=== PATIENT | female | born 1990 | race American Indian/Alaskan Native ===

== ENCOUNTER 2016-12-10 11:27 | Inpatient (IN) | payer MEDICAID ==
[2016-12-10] MEDS ORDERED: SUBLIMAZE IV PRN (11:36)
[2016-12-10] MEDS ORDERED: ePHEDrine SULFATE IV PRN ×2 (11:36→14:53)
[2016-12-10] MEDS ORDERED: MINERAL OIL PO PRN (11:36)
[2016-12-10] MEDS ORDERED: BRETHINE SUB-Q PRN (11:36)
[2016-12-10] MEDS ORDERED: XYLOCAINE 2% INFILTRATI ONE ×2 (11:36→20:14)
[2016-12-10] MEDS ORDERED: PITOCin/NS 20 UNIT/1000ML DRIP 20 UNITS/1,000 ML BAG IV SCH (12:00)
[2016-12-10 12:50] LABS: Hematocrit 38.6 % (30.3-42.9); Hemoglobin 12.3 gm/dl (10.1-14.3); Mean Corpuscular HGB Conc 32 % (30-34); Mean Corpuscular Hemoglobin 28 pg (28-32); Mean Corpuscular Volume 87 fl (79-97); Platelet Count 174 K/mm3 (140-440); Red Blood Count 4.45 M/mm3 (3.65-5.03); Red Cell Distribution Width 15.3 % (13.2-15.2); White Blood Count 8.1 K/mm3 (4.5-11.0)
[2016-12-10] MEDS ORDERED: fentaNYL-BUPIV 2 MCG/ML-0.125% 200 MCG/100 ML BAG EPIDURAL ONE (13:43)
--- NOTE | 2016-12-10 14:52 | Anesthesia Consultation ---
Anesthesia Consult and Med Hx - Airway Anesthetic Teeth Evaluation: Good ROM Head & Neck: Adequate Mental/Hyoid Distance: Adequate Mallampati Class: Class II Intubation Access Assessment: Good - Pulmonary Exam CTA: Yes - Cardiac Exam Cardiac Exam: RRR - Pre-Operative Health Status ASA Pre-Surgery Classification: ASA2 Proposed Anesthetic Plan: Epidural (Patine in labor - epidural placement - plt 174) - Pulmonary Hx Smoking: No (Patient cannot hear; slow learner) Hx Asthma: No COPD: No - Cardiovascular System Hx Hypertension: No - Central Nervous System Hx Seizures: No Hx Psychiatric Problems: No - Endocrine Hx Renal Disease: No Hx End Stage Renal Disease: No Hx Hypothyroidism: No Hx Hyperthyroidism: No - Hematic Hx Sickle Cell Disease: No - Other Systems Hx Alcohol Use: No
[2016-12-10] MEDS ORDERED: NARCAN 2 MG/2 ML IV PRN (14:53)
[2016-12-10] MEDS ORDERED: fentaNYL-BUPIV 2 MCG/ML-0.125% 200 MCG/100 ML BAG EPIDURAL SCH (15:00)
[2016-12-10] MEDS: PITOCin/NS 30 UNIT/500ML 30 UNITS/500 ML BAG IV SCH ×3 (15:03→17:47)
--- NOTE | 2016-12-10 16:58 | History and Physical Report ---
History of Present Illness Date of examination: 12/10/16 (pt sent from office 5cm with ROM) Date of admission: 12/10/16 11:38 History of present illness: EDC Calculations LMP: 12/15/2016 EDC Confirmation: 12/15/2016 Gestational Age: 13 1/7 weeks Past History : 1 Living Children: 0 Past Medical History Active Medications: PLUS 27-1 MG TABS ( VIT-FE FUMARATE-FA) 1 po q day Current Allergies: No known allergies Laboratory Results Routine Urinalysis Leukocytes: trace Nitrite: negative Urobilinogen: negative Protein: 1+ Blood: negative Ketone: trace (5) Bilirubin: negative Glucose: negative Urine HCG: positive PHYSICAL EXAM HEENT: PERRLA, normal conjunctiva, external nose and nasal mucosa normal, oropharynx clear Neck/Thyroid: supple, thyroid normal Skin no significant abnormal lesions or rashes Chest: respiratory effort normal, clear to auscultation Breasts: normal without skin changes or masses CV: regular, normal S1-S2, no murmur, no rub, no gallop Abdomen: normal bowel sounds, soft, nontender, no HSM Musculoskeletal: grossly normal ROM in joints, no joint tenderness or muscle weakness Neuro: grossly normal DTRs, sensation, strength, cranial nerves Extremities: no clubbing, cyanosis, or edema [employer] Exams Vulva/Vagina: No lesions, normal BUS, normal rugae Cervix: No lesions; no cervical motion tenderness Uterus: normal size and position, midline, mobile Adnexae: no masses or tenderness Rectovaginal: no masses or tenderness Vital Signs Height: 62 in. 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 of genital herpes: no Rash, Viral, or Febrile illness since last LMP? no Varicella/Chicken Pox Status: Previous Disease Genetic History Congenital Heart Defect: Mom: no Dad: unknown Levy Disease: Mom: no Dad: unknown Thalassemia Mom: no Dad: unknown Neural Tube Defect Mom: no Dad: unknown Down's Syndrome Mom: no Dad: unknown Brigido-Sachs Mom: no Dad: unknown Sickle Cell Disease/Trait Mom: no Dad: unknown Hemophilia Mom: no Dad: unknown Muscular Dystrophy Mom: no Dad: unknown Cystic Fibrosis Mom: no Dad: unknown [place] Chorea Mom: no Dad: unknown Mental Retardation Mom: no Dad: unknown Fragile X Mom: no Dad: unknown Other Genetic/Chromosomal Disorder Mom: no Dad: unknown Child w/other defect Mom: no Dad: unknown Comments/Counseling: PT -HEARING IMPAIRED Enviromental Exposures Xray Exposure: no Medication, drug, or alcohol use since LMP: no Chemical/Other Exposure: no Exposure to Cat Liter: no Hx of Parvovirus (Fifth Disease): no Occupational Exposure to Children: none Active Medications: PLUS 27-1 MG TABS ( VIT-FE FUMARATE-FA) 1 po q day Current Allergies: No known allergies Past History - Obstetrical History Expected Date of Delivery: 12/15/16 Actual Gestation: 39 Week(s) 2 Day(s) : 1 Number of Living Children: 0 Medications and Allergies Allergies Allergy/AdvReac Type Severity Reaction Status Date / Time No Known Allergies Allergy Unverified 12/10/16 14:53 Active Meds: Active Medications Fentanyl (Sublimaze) 100 mcg IV Q2H PRN PRN Reason: Labor Pain Lactated Ringer's (Lactated Ringers) 1,000 mls @ 125 mls/hr IV DIRECT STELLA Oxytocin/Sodium Chloride (Pitocin/Ns 20 Unit/1000ml Drip) 20 units in 1,000 mls @ 125 mls/hr IV DIRECT STELLA Oxytocin/Sodium Chloride (Pitocin/Ns 30 Unit/500ml) 30 units in 500 mls @ 4 mls /hr IV Q30MIN STELLA PRN Reason: Protocol Last Titration: 12/10/16 16:19 Dose: 12 ml/hr, 12 mls/hr Fentanyl/Bupivacaine/Sodium Chlor (Fentanyl-Bupiv 2 Mcg/Ml-0.125%) 200 mcg in 100 mls @ 12 mls/hr EPIDURAL TITR STELLA PRN Reason: Protocol Last Admin: 12/10/16 15:09 Dose: 12 mls/hr Mineral Oil (Mineral Oil) 30 ml PO QHS PRN PRN Reason: Constipation - Vital Signs Vital signs: Vital Signs Pulse Pulse Ox 98 H 97 12/10/16 12:16 12/10/16 12:16 Temp Pulse Resp BP Pulse Ox 98.2 F 85 18 87/52 96 12/10/16 12:20 12/10/16 16:49 12/10/16 12:20 12/10/16 16:40 12/10/16 16:49 - Physical Exam Breasts: Positive: deferred Cardiovascular: Regular rate, Normal S1, Normal S2 Lungs: Positive: Clear to auscultation Abdomen: Positive: normal appearance, soft, normal bowel sounds. Negative: distention, tenderness Vulva: both: normal Vagina: Positive: normal moisture. Negative: discharge Cervix: Negative: lesion, discharge Uterus: Positive: normal size, normal contour Adnexa: both: normal Anus/Rectum: Positive: normal perianal skin, heme negative. Negative: rectal mass, hemorrhoids Extremities: Positive: normal Deep Tendon Reflex Grade: Normal +2 - Obstetrical FHR: category 1 Cervical Dilatation: 5 (ROM confirmed by ) Cervical Effacement Percentage: 90 (SVE in office ) station: 0 Uterine Contraction Pattern: Irregular Uterine Contraction Intensity: Moderate Results Result Diagrams: 12/10/16 12:19 Abnormal lab results 12/10/16 Range/Units 12:19 RDW 15.3 H (13.2-15.2) % All other labs normal. Laboratory Data-Patient Name: ALEX LIZ Test Date Result Blood Type 07/08/2016 O Rh 07/08/2016 Positive Antibody Screen negative Rubella 07/08/2016 IMMUNE Serology (RPR) 11/12/2016 NR HBsAg 07/08/2016 Negative Hemoglobin 08/26/2016 11.0 Hematocrit 08/26/2016 35.8 Platelets 07/08/2016 399 [id number] Chlamydia DNA 11/12/2016 Negative GC DNA/Culture 11/12/2016 Urine Culture 07/08/2016 Final report Group B Strep cult negative PAP HIV 11/12/2016 NR AFP/Quad Screen 07/08/2016 Negative Glucola Test 3hr GTT (Fasting) 1 hr 2 hr 3 hr [facility]-Patient Name:ALEX LIZ Test Date Result Varicella Ab Sickle Cell 07/08/2016 Negative PPD Fibronectin Cystic Fibrosis Parvovirus TSH Free T4 Hepatitis C ALT AST Uric Acid Creatinine 24 hr Urine Protein DANO Assessment and Plan - Patient Problems (1) Spontaneous rupture of membranes Onset Date: ~12/09/16 Current Visit: Yes Status: Acute Plan to address problem: 26yo @ 39 weeks sent from OB office with SROM clear fluid SVE in office 5cm GBS negative Orders in EMR
--- NOTE | 2016-12-10 17:05 | Event Note ---
Date: 12/10/16 (pt comfortable with epidural) SVE 6-7, 100, 0 ISE/IUPC placed Forebag with clear fluid Pit @ 12mu Expectant mgt Anticipate delivery
[2016-12-10] MEDS: LACTATED RINGERS 1,000 ML IV SCH ×2 (17:06→17:45)
--- NOTE | 2016-12-10 21:15 | Procedure Note ---
OB Delivery Note - Delivery Date of Delivery: 12/10/16 Surgeon: JUDIE FAJARDO (VAVD) Certified Physician Assistant: ROYA ESCOBEDO Estimated blood loss: other (400ML) - Vaginal Delivery presentation: vertex Delivery position: OA Intrapartum events: mult.variable deceleratio, other(please specify) (HEARING IMPAIRED) Delivery augmentation: pitocin Delivery monitor: external FHT, external uterine, internal FHT, internal uterine Route of delivery: vacuum extraction (MATERNAL EXHAUSTION, SEVERE VARIABLE DECELERATIONS. INFANT'S HEAD DELIVERED WITH ONE APPLICATION KIWI VACUUM AT 500MMHG AT +3STATION, PLACED WITH MATERNAL EFFORT.INFANT'S HEAD DELIVERED EASILY. BODY DELIVERED BY Kyra ESCOBEDO.) Indicators for instrumentation: maternal exhaustion Delivery placenta: spontaneous Delivery cord: 3 umbilical vessels Episiotomy: midline (2ND DEGREE, WITH 4TH DEGREE EXTENSION, ) Delivery laceration: 4th degree (RECTAL MUCOSA REAPPROXIMATED WITH 4-0 VICRYL. THIRD DEGREE REPAIRED BY Kyra ESCOBEDO)
--- NOTE | 2016-12-10 21:26 | Procedure Note ---
OB Delivery Note - Delivery Date of Delivery: 12/10/16 (this is an addendum to 's note) Surgeon: JUDIE FAJARDO [employer] Manufacturing Technician: ROYA ESCOBEDO Estimated blood loss: other (400cc) - Vaginal Delivery presentation: vertex Delivery position: OA Delivery comments: Vaccum delivery over 2nd degree episiotomy Baby to mom's abdomen. Cord clamped and cut Baby to warmer. Cord blood obt. Placenta and membrane del complete and intact, 3 vessel cord. Episiotomy repaired over Lidocaine as noted in 's note. Pt tolerated well. 8/9, EBL 400, Wgt 6-8 Pit IVFs. Mom and baby remain LDR stable. - A at 1 minute: 8 at 5 minutes: 9 Infant Gender: Female (wgt 6-8)
[2016-12-10] MEDS ORDERED: MORPHINE ONE (23:03)
[2016-12-11] MEDS ORDERED: BENADRYL PO PRN (00:17)
[2016-12-11] MEDS ORDERED: LANSINOH TP PRN (00:17)
[2016-12-11] MEDS ORDERED: PHENERGAN PR PRN (00:17)
[2016-12-11] MEDS ORDERED: SODIUM CHLORIDE FLUSH SYRINGE 10 ML IV PRN (00:17)
[2016-12-11] MEDS ORDERED: TYLENOL PO PRN (00:17)
[2016-12-11] MEDS ORDERED: METHERGINE IM PRN (00:17)
[2016-12-11] MEDS ORDERED: PHENERGAN PO PRN (00:17)
[2016-12-11] MEDS ORDERED: CYTOTEC PR PRN (00:17)
[2016-12-11] MEDS ORDERED: TORADOL IV PRN (00:17)
[2016-12-11] MEDS ORDERED: DERMOPLAST TP PRN (00:17)
[2016-12-11] MEDS ORDERED: PITOCin/NS 20 UNIT/1000ML DRIP 20 UNITS/1,000 ML BAG IV SCH (00:17)
[2016-12-11] MEDS ORDERED: MOTRIN PO SCH (00:17)
[2016-12-11] MEDS ORDERED: DULCOLAX PR PRN (00:17)
[2016-12-11] MEDS ORDERED: HEMABATE IM PRN (00:17)
[2016-12-11] MEDS ORDERED: MILK OF MAGNESIA PO PRN (00:17)
[2016-12-11] MEDS ORDERED: TUCKS PAD TP PRN (00:17)
[2016-12-11] MEDS ORDERED: ZOFRAN IV PRN (00:17)
[2016-12-11] MEDS: PERCOCET 5/325 PO PRN ×2 (02:15→16:45)
[2016-12-11] MEDS: MOTRIN PO SCH ×2 (03:10→13:00)
--- NOTE | 2016-12-11 08:34 | Progress Note ---
Assessment and Plan patient resting, c/o perineal pain as expected. She states it feels better when she is laying on her side. discussed olimpia care and use of pain medication as needed. LORA Miller, post procedure H&H to be drawn this AM. Continue current management and consider d/c home tomorrow if stable. - Patient Problems (1) Vacuum extraction, delivered, current hospitalization Current Visit: Yes Status: Acute (2) Fourth degree perineal laceration during delivery Current Visit: Yes Status: Acute Subjective - Subjective Date of service: 12/11/16 Principal diagnosis: day #1 s/p vac del with 4th degree Patient reports: appetite normal, voiding normally, pain well controlled, ambulating normally, no dizzy ambulation, no nauseated : doing well Objective - Vital Signs Latest vital signs: Vital Signs Temp Pulse Pulse Resp BP BP Pulse Ox 12/11/16 04:20 98.6 F 78 20 90/48 12/10/16 23:20 98.9 F 88 20 103/58 12/10/16 22:38 96 H 107/62 96 12/10/16 22:36 113 H 94 12/10/16 22:33 94 H 96 12/10/16 22:30 102 H 94 12/10/16 22:28 105 H 95 12/10/16 22:23 102 H 102/67 96 12/10/16 22:22 98.4 F 12/10/16 22:21 109 H 94 12/10/16 22:18 105 H 95 12/10/16 22:13 100 H 95 12/10/16 22:11 102 H 94 12/10/16 22:08 98 H 92/55 95 12/10/16 22:03 106 H 96 12/10/16 22:02 103 H 94 12/10/16 21:58 103 H 96 12/10/16 21:53 103 H 108/67 96 12/10/16 21:48 94 H 96 12/10/16 21:43 97 H 96 12/10/16 21:38 104 H 97/68 96 12/10/16 21:33 102 H 97 12/10/16 21:32 103 H 103/62 12/10/16 21:28 104 H 97 12/10/16 21:23 106 H 97 12/10/16 21:18 105 H 99 03/16/17 21:13 110 H 99 03/16/17 21:09 99 H 113/71 03/16/17 21:08 102 H 98 03/16/17 21:03 107 H 100 03/16/17 20:58 108 H 100 03/16/17 20:54 113 H 109/70 0316/17 20:53 114 H 98 03/16/17 20:48 112 H 97 0316/17 20:43 117 H 97 16/17 20:38 122 H 109/54 96 03/16/17 20:34 121 H 88 16/17 20:33 121 H 111/56 86 03/16/17 20:08 102 H 113/56 16/17 19:54 117 H 115/61 /16/17 19:23 113 H 117/69 0316/17 19:18 99 F 18 /16/17 19:14 122 H 98 03/16/17 19:09 117 H 110/69 98 0316/17 19:07 117 H 89 16/17 19:04 115 H 97 03/16/17 18:59 96 H 99 03/16/17 18:54 103 H 99 03/16/17 18:53 106 H 109/60 03/16/17 18:49 99 H 98 03/16/17 18:44 109 H 97 03/16/17 18:40 112 H 112/73 0316/17 18:39 110 H 97 03/16/17 18:34 112 H 99 03/16/17 18:29 111 H 99 03/16/17 18:24 116 H 102/55 99 03/16/17 18:19 96 H 98 03/16/17 18:14 119 H 86 03/16/17 18:11 105 H 77 L 03/16/17 18:09 109 H 102/59 99 03/16/17 18:04 115 H 99 03/16/17 17:59 99 H 99 03/16/17 17:54 99 H 113/53 98 03/16/17 17:49 89 96 03/16/17 17:44 88 98 03/16/17 17:39 94 H 96 03/16/17 17:34 83 96 03/16/17 17:31 95 H 94 03/16/17 17:29 82 95 03/16/17 17:26 88 93 03/16/17 17:24 92 H 96 03/16/17 17:23 84 83/51 03/16/17 17:20 85 94 03/16/17 17:19 89 95 03/16/17 17:14 91 H 97 03/16/17 17:09 87 86/51 97 03/16/17 17:04 95 H 96 03/16/17 17:03 102 H 94 03/16/17 16:59 86 97 03/16/17 16:54 82 98 03/16/17 16:49 85 96 03/16/17 16:44 95 H 97 03/16/17 16:40 90 87/52 03/16/17 16:39 86 98 03/16/17 16:34 92 H 95 03/16/17 16:29 67 97 03/16/17 16:24 100 H 105/66 98 03/16/17 16:19 96 H 98 03/16/17 16:14 90 97 03/16/17 16:09 92 H 97 03/16/17 16:04 91 H 98 03/16/17 15:59 89 97 03/16/17 15:54 104 H 91/55 97 03/16/17 15:49 89 97 03/16/17 15:44 81 98 03/16/17 15:39 104 H 91/50 99 03/16/17 15:34 89 98 03/16/17 15:29 93 H 98 03/16/17 15:24 101 H 99/59 98 03/16/17 15:19 99 H 98 03/16/17 15:14 111 H 98 03/16/17 15:09 105 H 98 03/16/17 15:08 107 H 109/55 03/16/17 15:04 104 H 98 03/16/17 15:02 95 H 107/56 03/16/17 14:59 104 H 97 03/16/17 14:54 108 H 98 03/16/17 14:49 94 H 98 03/16/17 14:44 103 H 98 03/16/17 14:39 112 H 98 03/16/17 14:38 118 H 132/58 03/16/17 14:34 114 H 96 03/16/17 14:29 92 H 97 03/16/17 14:27 118 H 143/70 12/10/16 14:24 110 H 130/81 93 12/10/16 14:23 120 H 123/75 78 L 12/10/16 14:17 106 H 100 12/10/16 14:12 68 L 12/10/16 12:59 95 H 93 12/10/16 12:56 89 94 12/10/16 12:53 110 H 94 12/10/16 12:51 103 H 95 12/10/16 12:48 94 H 93 12/10/16 12:46 104 H 95 12/10/16 12:42 113 H 94 12/10/16 12:41 96 H 95 12/10/16 12:36 89 96 12/10/16 12:34 88 94 12/10/16 12:31 97 H 95 12/10/16 12:28 111 H 94 12/10/16 12:26 95 H 96 12/10/16 12:22 95 H 94 12/10/16 12:21 100 H 96 12/10/16 12:20 98.2 F 18 12/10/16 12:17 98 H 94 12/10/16 12:16 98 H 97 Intake and Output 12/10/16 12/11/16 12/11/16 22:59 06:59 14:59 Intake Total 4497 1180 Output Total 300 700 Balance 4197 480 Intake: IV 1000 1000 Lactated Ringers 1,000 ml 1000 1000 @ 125 mls/hr IV DIRECT STELLA Rx#:[id number] Intake, Free Water 180 Other 3497 Output: Urine 300 700 Indwelling Catheter 300 Void 700 Other: Total, Intake Amount 3497 Total, Output Amount 300 700 Estimated Blood Loss 400 - Exam Breasts: Present: normal Cardiovascular: Present: Regular rate Lungs: Present: Clear to auscultation, Normal air movement Abdomen: Present: normal appearance, soft Vulva: both: laceration/episiotomy (slightly edematous, intact) Uterus: Present: normal, firm, fundal height at umbilicus Extremities: Present: normal Incision: Present: normal, dry, intact - Labs Labs: Abnormal lab results 12/10/16 Range/Units 12:19 RDW 15.3 H (13.2-15.2) %
[2016-12-11 09:13] LABS: Hematocrit 31.1 % (30.3-42.9)
--- NOTE | 2016-12-11 09:50 | Progress Note ---
Subjective Date of service: 12/11/16 Principal diagnosis: day #1 s/p vac del with 4th degree Interval history: 1st day after normal vaginal delivery Patient is in the bed comfortable. Pain is well controlled with pain meds. Ambulated well. No residual neurological deficit. No anesthesia complications Objective - Constitutional Vitals: Vital Signs - 12hr 12/10/16 12/10/16 12/10/16 21:53 21:58 22:02 Temperature Pulse Rate 103 H 103 H 103 H Pulse Rate [ From Monitor] Respiratory Rate Blood Pressure 108/67 Blood Pressure [Left Arm] O2 Sat by Pulse 96 96 94 Oximetry 12/10/16 12/10/16 12/10/16 22:03 22:08 22:11 Temperature Pulse Rate 106 H 98 H 102 H Pulse Rate [ From Monitor] Respiratory Rate Blood Pressure 92/55 Blood Pressure [Left Arm] O2 Sat by Pulse 96 95 94 Oximetry 12/10/16 12/10/16 12/10/16 22:13 22:18 22:21 Temperature Pulse Rate 100 H 105 H 109 H Pulse Rate [ From Monitor] Respiratory Rate Blood Pressure Blood Pressure [Left Arm] O2 Sat by Pulse 95 95 94 Oximetry 12/10/16 12/10/16 12/10/16 22:22 22:23 22:28 Temperature 98.4 F Pulse Rate 102 H 105 H Pulse Rate [ From Monitor] Respiratory Rate Blood Pressure 102/67 Blood Pressure [Left Arm] O2 Sat by Pulse 96 95 Oximetry 12/10/16 12/10/16 12/10/16 22:30 22:33 22:36 Temperature Pulse Rate 102 H 94 H 113 H Pulse Rate [ From Monitor] Respiratory Rate Blood Pressure Blood Pressure [Left Arm] O2 Sat by Pulse 94 96 94 Oximetry 12/10/16 12/10/16 12/11/16 22:38 23:20 04:20 Temperature 98.9 F 98.6 F Pulse Rate 96 H Pulse Rate [ 88 78 From Monitor] Respiratory 20 20 Rate Blood Pressure 107/62 Blood Pressure 103/58 90/48 [Left Arm] O2 Sat by Pulse 96 Oximetry - Labs CBC & Chem 7: 12/11/16 08:59 Labs: Abnormal lab results 12/10/16 12/11/16 Range/Units 12:19 08:59 Hgb 10.0 L (10.1-14.3) gm/dl RDW 15.3 H (13.2-15.2) %
[2016-12-11] MEDS ORDERED: M-M-R II VACCINE SUB-Q ONE (20:56)
[2016-12-12] MEDS: MOTRIN PO SCH ×3 (00:09→12:16)
[2016-12-12] MEDS: PERCOCET 5/325 PO PRN (02:12)
--- NOTE | 2016-12-12 08:54 | Discharge Summary ---
Providers - Providers Date of Admission: 12/10/16 11:38 Date of discharge: 12/12/16 (pt agrees with d/c ) Attending physician: JUDIE FAJARDO 12/11/16 00:17 Consult to Back End Web Developer [CONS] Routine Reason For Exam: assistance with , SNS Primary care physician: JUDIE FAJARDO Hospitalization Reason for admission: active labor, IUP at term Delivery: vacuum extraction Episiotomy: midline Laceration: 4th degree Incision: dry, intact Other procedures: none complications: none Discharge diagnosis: IUP at term delivered baby: female Hospital course: Vacuum assisted vaginal delivery Complicated by a 4th degree laceration Pt only voicing concern @ pain from repair. VSS FF below umb Lochia small Perineum slight swelling intact. H&H 07/27 drop r/t blood loss from delivery No S/SX of anemia. Doing well s/p vag del with 4th degree lac. P: d/c today with instruction RTO 12-17-16 for check of repair. RX provided. Condition at discharge: Good Disposition: DISCHARGED TO HOME OR SELFCARE - Discharge Diagnoses (1) Vacuum extraction, delivered, current hospitalization Status: Acute Comment: RTO 12-17-16 for eval of repair Plan - Discharge Medications Prescriptions: Docusate Sodium [Colace] 100 mg PO BID PRN #30 capsule PRN Reason: Constipation Ibuprofen [Motrin 800 MG tab] 800 mg PO TID PRN #30 tablet PRN Reason: Pain oxyCODONE /ACETAMINOPHEN [Percocet 5/325 mg] 1 - 2 tab PO Q4HR PRN #15 tablet PRN Reason: Pain - Provider Discharge Summary Activity: routine, no sex for 6 weeks, no heavy lifting 4 weeks, no strenuous exercise Diet: routine Instructions: routine Additional instructions: [] Smoking cessation referral if applicable(refer to patient education folder for contact #) [] Refer to [facility] Booklet Call your doctor immediately for: * Fever > 100.5 * Heavy vaginal bleeding ( >1 pad per hour) * Severe persistent headache * Shortness of breath * Reddened, hot, painful area to leg or breast * Drainage or odor from incision. * Keep incision clean and dry at all times and follow doctor's instructions regarding bathing/showering - Follow up plan Follow up: JUDIE FAJARDO MD [Primary Care Provider] - 12/17/16 (Congratulations! Please keep your appointment as scheduled on 12-17-16 at 2:45 in the [place] office. Take medications as prescribed. Call with concerns. )
[2016-12-12 16:46] VITALS: BP 102/73
== END 2016-12-12 17:28 | disposition home or self-care (01) | DRG 988 ==
LOC: TRG 11:27 → LD 11:38 → OB 23:19
PROVIDERS: ADMIT Obstetrics & Gynecology; ATTEND Obstetrics & Gynecology
PROC: 10D07Z6 Extraction of Products of Conception, Vacuum, Via Natural or Artificial Opening (ICD-10-PCS; principal; 2016-12-10)
PROC: 0DQR0ZZ Repair Anal Sphincter, Open Approach (ICD-10-PCS; 2016-12-10)
PROC: 0DQP0ZZ Repair Rectum, Open Approach (ICD-10-PCS; 2016-12-10)
PROC: 0W8NXZZ Division of Female Perineum, External Approach (ICD-10-PCS; 2016-12-10)
DX: O76 Abnormality in fetal heart rate and rhythm complicating labor and delivery (principal); O70.3 Fourth degree perineal laceration during delivery; O26.893 Other specified pregnancy related conditions, third trimester; H91.90 Unspecified hearing loss, unspecified ear; Z37.0 Single live birth; Z3A.39 39 weeks gestation of pregnancy; Z80.9 Family history of malignant neoplasm, unspecified; Z80.3 Family history of malignant neoplasm of breast; Z83.3 Family history of diabetes mellitus; Z82.49 Family history of ischemic heart disease and other diseases of the circulatory system; Z82.2 Family history of deafness and hearing loss
CPT/HCPCS: 36415; 85014; 85018; 85027; 86592; 86850; 86900; 86901; 99211; G0463; J2270; J2590; J7120